=== PATIENT | male | born 1995 | race Caucasian/White ===

== ENCOUNTER 2020-05-17 11:21 | Outpatient (CLI) | payer OTHER, SELFPAY ==
--- NOTE | ~2020-05-17 | US_ITS ---
EXAMINATION: US thyroid DATE: 05/17/2020 11:52 INDICATION: Nontoxic goiter TECHNIQUE: Multiple ultrasound images of the thyroid were obtained. COMPARISON: None. FINDINGS: The right thyroid lobe measures 4.9 x 1.8 x 1.3 cm. The left thyroid lobe measures 4.2 x 1.5 x 1.4 c m. No discrete nodules identified. There is normal echotexture, echogenicity and vascular flow throu ghout the thyroid gland. IMPRESSION: 1. Normal thyroid ultrasound. Reviewed, dictated and finalized at location B. 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
== END 2020-05-17 11:22 | disposition home or self-care (01) ==
PROVIDERS: PCP Internal Medicine; Visit Provider Internal Medicine
DX: E04.9 Nontoxic goiter, unspecified (principal)
CPT/HCPCS: 76536